=== PATIENT | female | born 1975 | race Caucasian/White ===

== ENCOUNTER 2017-02-17 08:16 | Emergency (ER) | payer BC, MEDICARE ==
[2017-02-17] MEDS ORDERED: Sodium Chloride 0.9% 1,000 ML IV SCH (08:30)
--- NOTE | 2017-02-17 08:34 | EDM.PDOC ---
ED HPI GENERAL MEDICAL PROBLEM - General Chief Complaint: Lower Extremity Injury/Pain Stated Complaint: [facility] Time Seen by Provider: 02/17/17 08:21 Source of Information: Reports: Patient, EMS, Family (), RN Notes Reviewed History Limitations: Reports: No Limitations - History of Present Illness INITIAL COMMENTS - FREE TEXT/NARRATIVE: According to EMS and the patient's , the patient was going down stairs, and fell, with 3 stairs remaining. The patient's found the patient's blood glucose to be 40; the patient is a type I diabetic with an insulin pump and stated that her blood glucose monitor had indicated that her blood glucose had been 40 for 1.5 hours. The patient's gave the patient juice. When EMS arrived, they found the patient at the bottom of the stairs, alert and oriented, hemodynamically stable, with a blood glucose of 80. They noted a deformity to the left leg. They were unable to place an IV. Fentanyl 75 mcg was given intranasally. The patient's last oral intake was around 07:00, when she was given juice and peaches to treat her low blood sugar. She has been kept NPO since. Left Leg Pain Score (Numeric/FACES): 7 - Related Data Allergies Allergy/AdvReac Type Severity Reaction Status Date / Time No Known Allergies Allergy Verified 02/17/17 08:21 Home Meds: Home Meds Aspirin [Halfprin] 81 mg PO BEDTIME 04/21/14 [History] Insulin Aspart [NovoLOG] 1 dose SQ ASDIRECTED PRN 04/21/14 [History] Omeprazole 40 mg PO BEDTIME 04/21/14 [History] Zolpidem Tartrate [Zolpidem Tartrate] 5 mg PO BEDTIME PRN 04/21/14 [History] Albuterol Inhaler. 1 - 2 puff INH Q4H PRN 02/17/17 [History] Amitriptyline [Elavil] 50 mg PO BEDTIME 02/17/17 [History] Cholecalciferol (Vitamin D3) [Vitamin D3] 1,000 unit PO DAILY 02/17/17 [History] Furosemide [Lasix] 40 mg PO DAILY 02/17/17 [History] Gabapentin [Neurontin] 600 mg PO TID 02/17/17 [History] Insulin Glarg,Human.Rec.Analog [LantUS Solostar] 24 units SUBCUT DAILY 02/17/17 [History] Lisinopril 2.5 mg PO DAILY 02/17/17 [History] Triamterene/Hydrochlorothiazid [Triamterene-HCTZ 37.5-25 MG] 1 cap PO DAILY [History] buPROPion [Wellbutrin SR] 150 mg PO BID 02/17/17 [History] guaiFENesin [Mucinex] 600 mg PO BID 02/17/17 [History] Past Medical History Cardiovascular History: Reports: Hypertension Gastrointestinal History: Reports: GERD Psychiatric History: Reports: Depression Endocrine/Metabolic History: Reports: Diabetes, Type I - Past Surgical History GI Surgical History: Reports: Bariatric Procedure (gastric bypass), Cholecystectomy Female Surgical History: Reports: Breast Implant (bilateral), Hysterectomy, Salpingo-Oophorectomy (unilateral), Tubal Ligation Musculoskeletal Surgical History: Reports: Amputation (right 5th toe) Social & Family History - Tobacco Use Smoking Status *Q: Never Smoker Second Hand Smoke Exposure: No - Alcohol Use Alcohol Use History: Yes Alcohol Use Frequency: Rarely - Recreational Drug Use Recreational Drug Use: No - Living Situation & Occupation Living situation: Reports: , with Spouse, with Family (1 daughter) 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 of Systems - Review of Systems Review Of Systems: See Below Constitutional: Reports: No Symptoms Eyes: Reports: No Symptoms Ears: Reports: No Symptoms Nose: Reports: No Symptoms Mouth/Throat: Reports: No Symptoms Respiratory: Reports: No Symptoms Cardiovascular: Reports: No Symptoms GI/Abdominal: Reports: No Symptoms Genitourinary: Reports: No Symptoms Musculoskeletal: Reports: No Symptoms Skin: Reports: No Symptoms Neurological: Reports: No Symptoms Psychiatric: Reports: No Symptoms ED EXAM, GENERAL - Physical Exam Exam: See Below Exam Limited By: No Limitations General Appearance: Alert, WD/WN, No Apparent Distress Eye Exam: Bilateral Eye: Normal Inspection Ears: Normal External Exam, Hearing Grossly Normal Nose: Normal Inspection, No Blood Throat/Mouth: Normal Inspection, Normal Lips, Normal Voice, No Airway Compromise Head: Atraumatic, Normocephalic Neck: Normal Inspection, Full Range of Motion Respiratory/Chest: No Respiratory Distress, Lungs Clear, Normal Breath Sounds, No Accessory Muscle Use Cardiovascular: Normal Peripheral Pulses, Regular Rate, Rhythm, No Gallop, No JVD, No Murmur, No Rub Peripheral Pulses: 2+: Radial (R) GI/Abdominal: Normal Bowel Sounds, Soft, Non-Tender, No Organomegaly, No Distention, No Abnormal Bruit, No Mass (Female) Exam: Deferred Rectal (Female) Exam: Deferred Extremities: No Pedal Edema, Normal Capillary Refill, Other (Protruding deformity to the anterior tibia, proximally 2/3 distal. The patient reports bilateral lower extremity peripheral neuropathy, however, no decreased sensation on the left, compared with the right. Weak dorsalis pedis and posterior tibialis pulses felt, bilaterally.) Neurological: Alert, Oriented, Normal Cognition, No Motor/Sensory Deficits Psychiatric: Normal Affect Skin Exam: Warm, Dry, Intact, Normal Color, No Rash ED TRAUMA EXTREMITY PROCEDURES - Splinting Left Lower Extremity Splint Site: Left leg Pre-Procedure NV Status: Normal Post-Procedure NV Status: Normal Splint Material: Fiberglass Splint Design: Posterior Applied & Form Fitted By: Provider Provider Post-Splint Application NV Check: NV Status Normal, Good Position Complications: No EKG INTERPRETATION EKG Date: 02/17/17 Time: 08:51 Rhythm: NSR Rate (Beats/Min): 74 [place]: Normal P-Wave: Present QRS: Normal ST-T: Normal QT: Normal Comparison: NA - No Prior EKG Course - Vital Signs Last Recorded V/S: Last Vital Signs Temp 35.8 C 02/17/17 08:21 Pulse 80 02/17/17 08:21 Resp BP 134/84 02/17/17 08:21 Pulse Ox 95 02/17/17 08:21 - Orders/Labs/Meds Orders: Active Orders 24 hr Category Date Time Status Accu Check [Blood Glucose Check, Bedside] [RC] ONETIME Care 02/17/17 08:24 Active EKG Documentation Completion [RC] STAT Care 02/17/17 08:23 Active Labs: Laboratory Tests 02/17/17 02/17/17 02/17/17 Range/Units 08:50 09:06 09:09 WBC 5.58 (3.98-10.04) K/mm3 RBC 4.44 (3.98-5.22) M/mm3 Hgb 12.7 (11.2-15.7) gm/L Hct 39.7 (34.1-44.9) % MCV 89.4 (79.4-94.8) fl MCH 28.6 (25.6-32.2) pg MCHC 32.0 L (32.2-35.5) g/dl RDW Std Deviation 52.7 H (36.4-46.3) fL Plt Count 231 (182-369) K/mm3 MPV 11.4 (9.4-12.3) fl Neutrophils % (Manual) 62 H (40-60) % Band Neutrophils % 0 (0-10) % Lymphocytes % (Manual) 33 (20-40) % Atypical Lymphs % 0 % Monocytes % (Manual) 2 (2-10) % Eosinophils % (Manual) 3 (0.7-5.8) % Basophils % (Manual) 0 L (0.1-1.2) Platelet Estimate Adequate RBC Morph Comment Normal Sodium (136-145) mEq/L Potassium (3.5-5.1) mEq/L Chloride (98-107) mEq/L Carbon Dioxide (21-32) mEq/L Anion Gap (5-15) BUN (7-18) mg/dL Creatinine (0.55-1.02) mg/dL Est Cr Clr Drug Dosing mL/min Estimated GFR (MDRD) (>60) mL/min BUN/Creatinine Ratio (14-18) Glucose (74-106) mg/dL POC Glucose 127 H 52 L (70-105) mg/dL Calcium (8.5-10.1) mg/dL Total Bilirubin (0.2-1.0) mg/dL AST (15-37) U/L ALT (14-59) U/L Alkaline Phosphatase (46-116) U/L Total Protein (6.4-8.2) g/dl Albumin (3.4-5.0) g/dl Globulin gm/dL Albumin/Globulin Ratio (1-2) 02/17/17 Range/Units 09:09 WBC (3.98-10.04) K/mm3 RBC (3.98-5.22) M/mm3 Hgb (11.2-15.7) gm/L Hct (34.1-44.9) % MCV (79.4-94.8) fl MCH (25.6-32.2) pg MCHC (32.2-35.5) g/dl RDW Std Deviation (36.4-46.3) fL Plt Count (182-369) K/mm3 MPV (9.4-12.3) fl Neutrophils % (Manual) (40-60) % Band Neutrophils % (0-10) % Lymphocytes % (Manual) (20-40) % Atypical Lymphs % % Monocytes % (Manual) (2-10) % Eosinophils % (Manual) (0.7-5.8) % Basophils % (Manual) (0.1-1.2) Platelet Estimate RBC Morph Comment Sodium 143 (136-145) mEq/L Potassium 3.8 (3.5-5.1) mEq/L Chloride 103 (98-107) mEq/L Carbon Dioxide 29 (21-32) mEq/L Anion Gap 14.8 (5-15) BUN 36 H (7-18) mg/dL Creatinine 1.7 H (0.55-1.02) mg/dL Est Cr Clr Drug Dosing 41.49 mL/min Estimated GFR (MDRD) 33 (>60) mL/min BUN/Creatinine Ratio 21.2 H (14-18) Glucose 59 L (74-106) mg/dL POC Glucose (70-105) mg/dL Calcium 8.4 L (8.5-10.1) mg/dL Total Bilirubin 0.4 (0.2-1.0) mg/dL AST 28 (15-37) U/L ALT 38 (14-59) U/L Alkaline Phosphatase 64 (46-116) U/L Total Protein 6.6 (6.4-8.2) g/dl Albumin 3.4 (3.4-5.0) g/dl Globulin 3.2 gm/dL Albumin/Globulin Ratio 1.1 (1-2) Meds: Medications Discontinued Medications Generic Name Dose Route Start Last Admin Trade Name Freq PRN Reason Stop Dose Admin Dextrose/Water 25 ml 02/17/17 09:09 02/17/17 09:12 Dextrose 50% In Water IVPUSH 02/17/17 09:10 25 ml ONETIME STA Administration Dextrose/Water Confirm 02/17/17 09:14 02/17/17 09:18 Dextrose 50% In Water Administered 02/17/17 09:15 Not Given Dose 50 ml .ROUTE .STK-MED ONE Hydromorphone HCl 0.5 mg 02/17/17 08:47 02/17/17 08:57 Dilaudid IVPUSH 02/17/17 08:48 0.5 mg ONETIME ONE Administration Hydromorphone HCl 0.5 mg 02/17/17 09:41 02/17/17 09:45 Dilaudid IVPUSH 02/17/17 09:42 0.5 mg ONETIME ONE Administration Sodium Chloride 1,000 mls @ 100 mls/hr 02/17/17 08:30 02/17/17 08:40 Normal Saline IV 100 mls/hr ASDIRECTED CRISTINA Administration Dextrose/Sodium Chloride 1,000 mls @ 100 mls/hr 02/17/17 09:15 02/17/17 09:17 Dextrose 5%-Normal Saline IV 100 mls/hr ASDIRECTED CRISTINA Administration Ondansetron HCl 4 mg 02/17/17 08:47 02/17/17 08:56 Zofran IVPUSH 02/17/17 08:48 4 mg ONETIME ONE Administration - Re-Assessments/Exams Free Text/Narrative Re-Assessment/Exam: 02/17/17 08:59 5-view radiographs of the left tibia and fibula appear to demonstrate a moderately displaced and angulated distal tibial spiral fracture, as well as moderately displaced and angulated proximal and distal fibular spiral fractures. Formal read per the Radiologist pending. Portable chest radiograph appears to be grossly normal. Cardiac silhouette is within normal limits. No pulmonary vascular congestion. No pleural effusions. No focal infiltrate. No pneumothorax. Formal read per the Radiologist pending. 02/17/17 09:12 The patient's initial Accu-Chek was 127, however, her glucose monitor indicated that her blood sugar dropped to 50. We performed an Accu-Chek and found it to be 52. The patient's normal saline has been changed to D5NS at 100 ml/hr, and 1/ 2 Amp D50 ordered. 02/17/17 09:15 Orthopedic Surgery is not available at this facility today - the patient will have to be transferred to [place]. The patient would prefer to be transferred to [facility]. Case discussed with Orthopedic Surgeon Dr. Soriano from [facility] at 09:13. He accepts the patient for transfer to their ED. 02/17/17 09:38 A left leg posterior mold splint has been applied. 02/17/17 09:40 The patient's insulin pump has been on. We asked the patient to turn it off. Departure - Departure Time of Disposition: 09:38 Disposition: DC/Tfer to Acute Hospital 02 Condition: Fair Clinical Impression: Closed fracture of left tibia and fibula, Hypoglycemic reaction - Discharge Information - My Orders Last 24 Hours: My Active Orders 02/17/17 08:23 EKG Documentation Completion [RC] STAT 02/17/17 08:24 Accu Check [Blood Glucose Check, Bedside] [RC] ONETIME - Assessment/Plan Last 24 Hours: My Active Orders 02/17/17 08:23 EKG Documentation Completion [RC] STAT 02/17/17 08:24 Accu Check [Blood Glucose Check, Bedside] [RC] ONETIME
[2017-02-17] MEDS ORDERED: HYDROmorphone 0.5 MG/0.5 ML Syringe IVPUSH ONE ×2 (08:47→09:41)
[2017-02-17] MEDS ORDERED: Ondansetron 4 MG/2 ML SDV IVPUSH ONE (08:47)
[2017-02-17] MEDS ORDERED: 50% Dextrose in Water 50 ML Syringe IVPUSH STA (09:09)
[2017-02-17] MEDS ORDERED: 50% Dextrose in Water 50 ML Syringe ONE (09:14)
[2017-02-17] MEDS ORDERED: Dextrose 5%-0.9% NaCl 1,000 ML IV SCH (09:15)
--- NOTE | 2017-02-17 09:54 | CR ---
Left tibia and fibula: Two views of the left tibia and fibula were obtained. Fracture identified near the junction of the mid and distal one third diaphysis of the tibia. This tibial fracture is mildly comminuted as well as being displaced close to one shaft width. Proximal fibular shaft fracture is seen being displaced by about three quarters shaft width. Soft tissue swelling is noted. Nondisplaced distal fibular diaphyseal fracture is also seen. Impression: 1. Fractures within the proximal and distal fibular diaphysis. 2. Mildly displaced fracture within the tibial diaphysis. 3. Soft tissue swelling. Diagnostic code #3
--- NOTE | 2017-02-17 09:54 | CR ---
Chest: Portable view of the chest was obtained. Comparison: No prior chest x-ray. Heart size and mediastinum are within normal limits. Lungs are clear. Bony structures are grossly intact. Surgical clips are seen from prior cholecystectomy. Impression: 1. Nothing acute is identified on portable chest x-ray. Diagnostic code #2
== END 2017-02-17 10:00 ==
LOC: JD.ED 08:16
DX: S82.242A Displaced spiral fracture of shaft of left tibia, initial encounter for closed fracture (principal); S82.442A Displaced spiral fracture of shaft of left fibula, initial encounter for closed fracture; E10.649 Type 1 diabetes mellitus with hypoglycemia without coma; I10 Essential (primary) hypertension; Z79.82 Long term (current) use of aspirin; Z79.4 Long term (current) use of insulin; Z79.899 Other long term (current) drug therapy; W10.9XXA Fall (on) (from) unspecified stairs and steps, initial encounter
CPT/HCPCS: 29505; 36415; 71010; 73590; 80053; 82962; 85025; 93005; 96361; 96374; 96375; 99285; J1170; J2405; J7040; J7042; J7060; 93010; 99284-25

== ENCOUNTER 2018-07-04 16:35 | Emergency (ER) | payer BC, MEDICARE ==
[2018-07-04] MEDS ORDERED: Sodium Chloride 0.9% 10 ML Syringe FLUSH PRN (17:03)
[2018-07-04] MEDS ORDERED: Sodium Chloride 0.9% 1,000 ML IV SCH (17:15)
--- NOTE | 2018-07-04 17:46 | EDM.PDOC ---
ED HPI GENERAL MEDICAL PROBLEM - General Chief Complaint: Lower Extremity Injury/Pain Stated Complaint: FOOT INFECTION Time Seen by Provider: 07/04/18 16:46 Source of Information: Reports: Patient, Family, Provider History Limitations: Reports: No Limitations - History of Present Illness INITIAL COMMENTS - FREE TEXT/NARRATIVE: The patient presents from our clinic with left foot pain and worsening infection. The patient said this all started about 2 weeks ago. She had dry feet and she had a crack to her skin on the lateral foot. This got infected and she saw her provider and she was put on keflex for 10 days and physical therapy for debridement. She is type I diabetic. The infection has gotten worse. She has erythema to her distal left foot and to all 5 toes and there is pallor to the 4th and 5th toes. She can feel all toes. She has pain to the foot. There is foul smelling drainage from a wound to the lateral distal foot near the base of the 5th phalynx. The patient went to see her provider in follow up and she was concerned the infection is worse and that she may have osteomyolitis. MRI was unavailable so she ordered an x-ray and a CT of the foot. She sent the patient over for possible admission or transfer. She developed fever and chills the past couple days. Onset: Gradual Duration: Week(s): (2) Location: Reports: Lower Extremity, Left (foot) Quality: Reports: Sharp Severity: Moderate Improves with: Reports: None Worsens with: Reports: None Associated Symptoms: Reports: Fever/Chills Left Feet Pain Score (Numeric/FACES): 8 - Related Data Allergies Allergy/AdvReac Type Severity Reaction Status Date / Time No Known Allergies Allergy Verified 02/24/18 09:25 Home Meds: Home Meds Aspirin [Halfprin] 81 mg PO BEDTIME 04/21/14 [History] Insulin Aspart [NovoLOG] 1 dose SQ ASDIRECTED PRN 04/21/14 [History] Omeprazole 40 mg PO BEDTIME 04/21/14 [History] Zolpidem Tartrate 5 mg PO BEDTIME PRN 04/21/14 [History] Cholecalciferol (Vitamin D3) [Vitamin D3] 15,000 unit PO DAILY 02/17/17 [History ] Furosemide [Lasix] 40 mg PO DAILY 02/17/17 [History] Lisinopril 2.5 mg PO DAILY 02/17/17 [History] Triamterene/Hydrochlorothiazid [Triamterene-HCTZ 37.5-25 MG] 1 cap PO DAILY [History] buPROPion [Wellbutrin SR] 150 mg PO BID 02/17/17 [History] Insulin Degludec [Tresiba] 16 unit INJECT BEDTIME 07/04/18 [History] Pregabalin [Lyrica] 100 mg PO TID 07/04/18 [History] traMADol [Ultram] 50 mg PO Q6H PRN 07/04/18 [History] Past Medical History Cardiovascular History: Reports: Hypertension Gastrointestinal History: Reports: GERD Neurological History: Reports: Neuropathy, Peripheral Psychiatric History: Reports: Depression Endocrine/Metabolic History: Reports: Diabetes, Type I - Past Surgical History GI Surgical History: Reports: Bariatric Procedure, Cholecystectomy Female Surgical History: Reports: Breast Implant, Hysterectomy, Salpingo- Oophorectomy, Tubal Ligation Musculoskeletal Surgical History: Reports: Amputation Other Musculoskeletal Surgeries/Procedures:: right foot 4-5 toes Social & Family History - Tobacco Use Smoking Status *Q: Never Smoker - Caffeine Use Caffeine Use: Reports: Energy Drinks, Soda - Recreational Drug Use Recreational Drug Use: No - Living Situation & Occupation Living situation: Reports: , with Spouse, with Family (1 daughter) 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 of Systems - Review of Systems Review Of Systems: See Below Constitutional: Reports: Chills, Fever Eyes: Reports: No Symptoms Ears: Reports: No Symptoms Nose: Reports: No Symptoms Mouth/Throat: Reports: No Symptoms Respiratory: Reports: No Symptoms Cardiovascular: Reports: No Symptoms GI/Abdominal: Reports: No Symptoms Musculoskeletal: Reports: Other (Left foot errythema and sore) ED EXAM, GENERAL - Physical Exam Exam: See Below Exam Limited By: No Limitations General Appearance: Alert, No Apparent Distress Ears: Normal External Exam Nose: Normal Inspection Head: Atraumatic, Normocephalic Neck: Normal Inspection Respiratory/Chest: No Respiratory Distress, Lungs Clear, Normal Breath Sounds Cardiovascular: Regular Rate, Rhythm, No Edema, No Murmur GI/Abdominal: Soft, Non-Tender, No Organomegaly, No Mass Extremities: Other (Erythema to the distal left foot involving all 5 toes. There is feeling in all toes. She does have some pallor to the 4th and 5th toes. Ther is a wound with foul smelling drainage to the distal lateral foot.) Course - Vital Signs Last Recorded V/S: Last Vital Signs Temp 100.5 F 07/04/18 16:54 Pulse 101 H 07/04/18 16:54 Resp 20 07/04/18 16:54 BP 151/87 H 07/04/18 16:54 Pulse Ox 96 07/04/18 16:54 - Orders/Labs/Meds Orders: Active Orders 24 hr Category Date Time Status Accu Check [Blood Glucose Check, Bedside] [RC] ONETIME Care 07/04/18 18:18 Inactive Peripheral IV Care [RC] . DIRECTED Care 07/04/18 17:04 Active BASIC METABOLIC PANEL,BMP [CHEM] Stat Lab 07/04/18 18:07 Results CBC WITH AUTO DIFF [HEME] Stat Lab 07/04/18 18:07 Results CRP [C-REACTIVE PROTEIN] [CHEM] Stat Lab 07/04/18 18:07 Results CULTURE ANAEROBIC + SMEAR [RM] Stat Lab 07/04/18 17:34 Received CULTURE BLOOD [BC] Stat Lab 07/04/18 17:05 Ordered CULTURE BLOOD [BC] Stat Lab 07/04/18 17:50 Received Sodium Chloride 0.9% [Normal Saline] 1,000 ml Med 07/04/18 17:15 Active IV ASDIRECTED Sodium Chloride 0.9% [Saline Flush] Med 07/04/18 17:03 Active 10 ml FLUSH ASDIRECTED PRN Vancomycin 2 gm Med 07/04/18 18:30 Active Sodium Chloride 0.9% [Normal Saline] 500 ml IV ONETIME Blood Culture x2 Reflex Set [OM.PC] Stat Oth 07/04/18 17:05 Ordered Peripheral IV Insertion Adult [OM.PC] Stat Oth 07/04/18 17:03 Ordered Medication Orders Sodium Chloride (Normal Saline) 1,000 mls @ 125 mls/hr IV ASDIRECTED CRISTINA Last Admin: 07/04/18 18:01 Dose: 125 mls/hr Vancomycin HCl 2 gm/ Sodium (Chloride) 500 mls @ 250 mls/hr IV ONETIME ONE Stop: 07/04/18 20:29 Last Admin: 07/04/18 18:21 Dose: 250 mls/hr Sodium Chloride (Saline Flush) 10 ml FLUSH ASDIRECTED PRN PRN Reason: Keep Vein Open Last Admin: 07/04/18 18:02 Dose: 10 ml Labs: Laboratory Tests 07/04/18 07/04/18 Range/Units 18:07 18:07 WBC 16.38 H (3.98-10.04) K/mm3 RBC 3.45 L (3.98-5.22) M/mm3 Hgb 11.3 (11.2-15.7) gm/L Hct 34.8 (34.1-44.9) % MCV 100.9 H (79.4-94.8) fl MCH 32.8 H (25.6-32.2) pg MCHC 32.5 (32.2-35.5) g/dl RDW Std Deviation 41.0 (36.4-46.3) fL Plt Count 298 (182-369) K/mm3 MPV 10.0 (9.4-12.3) fl Neut % (Auto) 84.2 H (34.0-71.1) % Lymph % (Auto) 8.1 L (19.3-51.7) % [place] % (Auto) 7.0 (4.7-12.5) % Eos % (Auto) 0.3 L (0.7-5.8) Baso % (Auto) 0.1 (0.1-1.2) % Neut # (Auto) 13.80 H (1.56-6.13) K/mm3 Lymph # (Auto) 1.32 (1.18-3.74) K/mm3 [place] # (Auto) 1.14 H (0.24-0.36) K/mm3 Eos # (Auto) 0.05 (0.04-0.36) K/mm3 Baso # (Auto) 0.02 (0.01-0.08) K/mm3 Sodium 140 (136-145) mEq/L Potassium 3.9 (3.5-5.1) mEq/L Chloride 101 (98-107) mEq/L Carbon Dioxide 27 (21-32) mEq/L Anion Gap 15.9 H (5-15) BUN 13 (7-18) mg/dL Creatinine 1.1 H (0.55-1.02) mg/dL Est Cr Clr Drug Dosing 62.80 mL/min Estimated GFR (MDRD) 54 (>60) mL/min BUN/Creatinine Ratio 11.8 L (14-18) Glucose 250 H (74-106) mg/dL Calcium 8.2 L (8.5-10.1) mg/dL Total Bilirubin Cancelled AST Cancelled ALT Cancelled Alkaline Phosphatase Cancelled Total Protein Cancelled Albumin Cancelled Globulin Cancelled Albumin/Globulin Ratio Cancelled Meds: Medications Generic Name Dose Route Start Last Admin Trade Name Freq PRN Reason Stop Dose Admin Sodium Chloride 1,000 mls @ 125 mls/hr 07/04/18 17:15 07/04/18 18:01 Normal Saline IV 125 mls/hr ASDIRECTED CRISTINA Administration Vancomycin HCl 2 gm/ Sodium 500 mls @ 250 mls/hr 07/04/18 18:30 07/04/18 18: 21 Chloride IV 07/04/18 20:29 250 mls/hr ONETIME ONE Administration Sodium Chloride 10 ml 07/04/18 17:03 07/04/18 18:02 Saline Flush FLUSH 10 ml ASDIRECTED PRN Administration Keep Vein Open Discontinued Medications Generic Name Dose Route Start Last Admin Trade Name Freq PRN Reason Stop Dose Admin Hydromorphone HCl 1 mg 07/04/18 18:14 07/04/18 18:18 Dilaudid IVPUSH 07/04/18 18:15 1 mg ONETIME ONE Administration - Re-Assessments/Exams Free Text/Narrative Re-Assessment/Exam: 07/04/18 17:51 I ordered an IV NS at 125mL/hr, labs, blood cultures, cultures of the wound and vancomycin 2 grams. Her x-ray of her foot shows diffuse soft tissue swelling with soft tissue air compatible with cellulitis. Minimal irregularity within the base of the proximal phalanx of the 5th toe suspicious for early osteomyelitis. The CT shows diffuse soft tissue swelling. Soft tissue air around the 5th toe with small cortical defect involving the base of the proximal phalanx of the 5th toe suspicious for early area of osteomyelitis. Vascular calcification. 07/04/18 18:22 Her WBC was elevated at 16.38. She was a hard lab draw. They got 1 blood culture and they will give me a CBC, CMP, CRP but no sed rate. She was having more pain so I ordered dilaudid 1mg IV. 07/04/18 18:49 Her blood sugar was 250. I feel she needs to be admitted but we do not have ortho this weekend. I called [facility] in [place] and talked to the hospitalist energy conservation director Dr Washington and he accepted the patient. Departure - Departure Time of Disposition: 18:55 Disposition: DC/Tfer to [facility] 02 Condition: Poor Clinical Impression: Cellulitis of left foot, Wound infection Osteomyelitis Qualifiers: Osteomyelitis type: unspecified type Osteomyelitis location: foot Laterality: left Qualified Code(s): M86.9 - Osteomyelitis, unspecified - Discharge Information Referrals: Modesta Candelario PA-C [Primary Care Provider] - Forms: ED Department Discharge - My Orders Last 24 Hours: My Active Orders 07/04/18 17:03 Sodium Chloride 0.9% [Saline Flush] 10 ml FLUSH ASDIRECTED PRN Peripheral IV Insertion Adult [OM.PC] Stat 07/04/18 17:04 Peripheral IV Care [RC] . DIRECTED 07/04/18 17:05 CULTURE BLOOD [BC] Stat Blood Culture x2 Reflex Set [OM.PC] Stat 07/04/18 17:15 Sodium Chloride 0.9% [Normal Saline] 1,000 ml IV ASDIRECTED 07/04/18 17:34 CULTURE ANAEROBIC + SMEAR [RM] Stat 07/04/18 17:50 CULTURE BLOOD [BC] Stat 07/04/18 18:07 BASIC METABOLIC PANEL,BMP [CHEM] Stat CBC WITH AUTO DIFF [HEME] Stat CRP [C-REACTIVE PROTEIN] [CHEM] Stat 07/04/18 18:18 Accu Check [Blood Glucose Check, Bedside] [RC] ONETIME 07/04/18 18:30 Vancomycin 2 gm Sodium Chloride 0.9% [Normal Saline] 500 ml IV ONETIME - Assessment/Plan Last 24 Hours: My Active Orders 07/04/18 17:03 Sodium Chloride 0.9% [Saline Flush] 10 ml FLUSH ASDIRECTED PRN Peripheral IV Insertion Adult [OM.PC] Stat 07/04/18 17:04 Peripheral IV Care [RC] . DIRECTED 07/04/18 17:05 CULTURE BLOOD [BC] Stat Blood Culture x2 Reflex Set [OM.PC] Stat 07/04/18 17:15 Sodium Chloride 0.9% [Normal Saline] 1,000 ml IV ASDIRECTED 07/04/18 17:34 CULTURE ANAEROBIC + SMEAR [RM] Stat 07/04/18 17:50 CULTURE BLOOD [BC] Stat 07/04/18 18:07 BASIC METABOLIC PANEL,BMP [CHEM] Stat CBC WITH AUTO DIFF [HEME] Stat CRP [C-REACTIVE PROTEIN] [CHEM] Stat 07/04/18 18:18 Accu Check [Blood Glucose Check, Bedside] [RC] ONETIME 07/04/18 18:30 Vancomycin 2 gm Sodium Chloride 0.9% [Normal Saline] 500 ml IV ONETIME
[2018-07-04] MEDS ORDERED: HYDROmorphone 1 MG/ML Syringe IVPUSH ONE (18:14)
[2018-07-04] MEDS ORDERED: Vancomycin 2 GM in Sodium Chloride 0.9% 500 ML IV ONE (18:30)
== END 2018-07-04 19:16 ==
LOC: JD.ED 16:35
DX: L03.116 Cellulitis of left lower limb (principal); M86.9 Osteomyelitis, unspecified; I10 Essential (primary) hypertension; K21.9 Gastro-esophageal reflux disease without esophagitis; E10.9 Type 1 diabetes mellitus without complications; Z79.899 Other long term (current) drug therapy; L08.9 Local infection of the skin and subcutaneous tissue, unspecified; Z79.82 Long term (current) use of aspirin
CPT/HCPCS: 36415; 80048; 85025; 86140; 87040; 87075; 87205; 96365; 96375; 99284; J1170; J3370; J7040

== ENCOUNTER 2019-12-25 18:42 | Emergency (ER) | payer MEDICARE, OTHER ==
[2019-12-25] MEDS ORDERED: Sodium Chloride 0.9% 10 ML Syringe FLUSH PRN (18:57)
[2019-12-25] MEDS ORDERED: Sodium Chloride 0.9% 1,000 ML ONE (19:21)
--- NOTE | 2019-12-25 21:20 | CR ---
Chest: Frontal view of the chest was obtained. Comparison: No prior chest imaging is available. Diffuse parenchymal density is seen within both lungs. Heart size does not appear enlarged. Upper mediastinum is normal. Right subclavian line is seen. Tip extends through the right atrium into the intrahepatic portion of the inferior vena cava. Surgical clips are seen from prior cholecystectomy. Impression: 1. Tip of right subclavian line within the intrahepatic portion of the inferior vena cava. If tip position is desired within the superior vena cava this would need to be withdrawn by about 15 cm. 2. Diffuse increased parenchymal densities on both sides of the chest which could represent pulmonary edema if patient has acute cardiac event or other etiologies for pulmonary edema. Diffuse pneumonia is also a possibility which could be both bacterial or viral. Diagnostic code #5 Study was dictated in MDT
[2019-12-25] MEDS ORDERED: propofoL 100 ML ONE (21:27)
[2019-12-25] MEDS ORDERED: Dextrose 5%-0.9% NaCl 1,000 ML IV SCH (21:30)
[2019-12-25] MEDS ORDERED: Etomidate 2 MG/ML 20 ML SDV IVPUSH ONE (21:35)
[2019-12-25] MEDS ORDERED: Succinylcholine 200 MG/10 ML MDV IV ONE (21:36)
[2019-12-25] MEDS ORDERED: Midazolam 1 MG/ML 5 ML SDV IVPUSH ONE (21:50)
[2019-12-25] MEDS ORDERED: propofoL 100 ML IV SCH (21:55)
--- NOTE | 2019-12-25 22:11 | EDM.PDOC ---
ED HPI GENERAL MEDICAL PROBLEM - General Chief Complaint: General Stated Complaint: UNRESPONSIVE/TYPE 1 DIABETES Time Seen by Provider: 12/25/19 18:52 Source of Information: Reports: Family History Limitations: Reports: Altered Mental Status - History of Present Illness INITIAL COMMENTS - FREE TEXT/NARRATIVE: The patient presents with her for confusion, cough and shortness of breath. She started having symptoms a few days ago and was tested for COVID and she was positive. She is a brittle type I diabetic and her bed side glucose was 204. Her oxygen saturations were 77%. She was out on some 4L of oxygen by nasal cannula and she went up to 93%. She had a cough, felt short of breath. She has no diarrhea. Onset: Gradual Duration: Day(s): Severity: Moderate Improves with: Reports: None Worsens with: Reports: None Associated Symptoms: Reports: Confusion, Cough, Fever/Chills, Shortness of Breath. Denies: Chest Pain, Headaches, Nausea/Vomiting - Related Data Allergies Allergy/AdvReac Type Severity Reaction Status Date / Time No Known Allergies Allergy Verified 12/25/19 19:26 Home Meds: Home Meds Aspirin [Halfprin] 81 mg PO BEDTIME 04/21/14 [History] Insulin Aspart [NovoLOG] 1 dose SQ ASDIRECTED PRN 04/21/14 [History] Omeprazole 40 mg PO BEDTIME 04/21/14 [History] Zolpidem Tartrate 5 mg PO BEDTIME PRN 04/21/14 [History] Cholecalciferol (Vitamin D3) [Vitamin D3] 15,000 unit PO DAILY 02/17/17 [History] Furosemide [Lasix] 40 mg PO DAILY 02/17/17 [History] Lisinopril 2.5 mg PO DAILY 02/17/17 [History] Triamterene/Hydrochlorothiazid [Triamterene-HCTZ 37.5-25 MG] 1 cap PO DAILY 02/17/17 [History] buPROPion [Wellbutrin SR] 150 mg PO BID 02/17/17 [History] Insulin Degludec [Tresiba] 16 unit INJECT BEDTIME 07/04/18 [History] Pregabalin [Lyrica] 100 mg PO TID 07/04/18 [History] Acetaminophen/HYDROcodone [[place] 325-5 MG] 1 tab PO Q4H PRN 07/14/18 [History] Past Medical History Cardiovascular History: Reports: Hypertension Gastrointestinal History: Reports: GERD Neurological History: Reports: Neuropathy, Peripheral Psychiatric History: Reports: Depression Endocrine/Metabolic History: Reports: Diabetes, Type I - Past Surgical History GI Surgical History: Reports: Bariatric Procedure, Cholecystectomy Female Surgical History: Reports: Breast Implant, Hysterectomy, Salpingo- Oophorectomy, Tubal Ligation Musculoskeletal Surgical History: Reports: Amputation Other Musculoskeletal Surgeries/Procedures:: right foot 4-5 toes, surgery on L heel Social & Family History - Tobacco Use Smoking Status *Q: Never Smoker Second Hand Smoke Exposure: No - Caffeine Use Caffeine Use: Reports: None - Recreational Drug Use Recreational Drug Use: No - Living Situation & Occupation Living situation: Reports: , with Spouse, with Family (1 daughter) 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) ED ROS GENERAL - Review of Systems Review Of Systems: See Below Constitutional: Reports: Fever, Chills, Malaise, Weakness HEENT: Reports: No Symptoms Respiratory: Reports: Shortness of Breath, Cough Cardiovascular: Denies: No Symptoms Endocrine: Reports: No Symptoms GI/Abdominal: Reports: No Symptoms : Reports: No Symptoms Musculoskeletal: Reports: No Symptoms ED EXAM, GENERAL - Physical Exam Exam: See Below Exam Limited By: Altered Mental Status General Appearance: Alert, Other (confused) Ears: Normal External Exam Nose: Normal Inspection Head: Atraumatic, Normocephalic Neck: Normal Inspection Respiratory/Chest: Respiratory Distress (mild), Decreased Breath Sounds Cardiovascular: Regular Rate, Rhythm, No Edema, No Murmur GI/Abdominal: Soft, Non-Tender, No Organomegaly, No Mass Back Exam: Normal Inspection Extremities: Normal Inspection ED GENERAL MEDICAL PROCEDURES - Endotracheal Intubation Time of Intubation: 21:30 ET Intubation Indication: Respiratory Failure Preparation: Suction, Balloon Tested, BVM Set Up, Difficult Airway Equip Pre-Oxygenation: Assisted with BVM Anesthesia Meds: Etomidate, Succinylcholine Placement: Orotracheal, Cuffed, Uncomplicated Placement Cords Visualized: Yes Number of Attempts: 1 Confirmed By: CO2 Indicator, Bilateral Breath Sounds, Chest Xray Tube Secured By: By RT ED CENTRAL LINE INSERTION - Central Line Insertion Central Line Indication: IV access Site: subclavian (R) Prep: CDC/MBT Guidelines Lumen: triple Gauge: other Local Anesthesia - Lidocaine (Xylocaine): 1% Plain Local Anesthetic Volume: 3cc Guidewire and dilator removed intact: Yes Complications: Yes (The line had to be pulled back) Secured with suture: Yes Post placement confirmation: CXR, all ports aspirated, all ports flushed CXR post-procedure: no pneumothorax, no hemothorax Dressing applied: by provider Course - Vital Signs Last Recorded V/S: Last Vital Signs Temp 98.6 F 12/25/19 18:51 Pulse 110 H 12/25/19 20:43 Resp 22 H 12/25/19 20:43 BP 149/92 H 12/25/19 20:43 Pulse Ox 73 L 12/25/19 21:15 - Orders/Labs/Meds Orders: Active Orders 24 hr Category Date Time Status Cardiac Monitoring [RC] . DIRECTED Care 12/25/19 18:57 Active Central Line Assessment [RC] DAILY Care 12/25/19 20:31 Active Oxygen Therapy [RC] PRN Care 12/25/19 18:57 Active Peripheral IV Care [RC] . DIRECTED Care 12/25/19 18:58 Active CXR [Chest 1V Frontal] [CR] Stat Exams 12/25/19 22:01 Taken Chest 1V Frontal [CR] Stat Exams 12/25/19 18:58 Taken CULTURE BLOOD [BC] Stat Lab 12/25/19 18:59 Ordered CULTURE BLOOD [BC] Stat Lab 12/25/19 18:59 Ordered Dextrose 5%-0.9% NaCl [Dextrose 5%-Normal Saline] 1,000 Med 12/25/19 21:30 Active ml IV ASDIRECTED Sodium Chloride 0.9% [Saline Flush] Med 12/25/19 18:57 Active 10 ml FLUSH ASDIRECTED PRN Blood Culture x2 Reflex Set [OM.PC] Stat Oth 12/25/19 18:59 Ordered Peripheral IV Insertion Adult [OM.PC] Stat Oth 12/25/19 18:57 Ordered Medication Orders Dextrose/Sodium Chloride (Dextrose 5%-Normal Saline) 1,000 mls @ 100 mls/hr IV ASDIRECTED CRISTINA Sodium Chloride (Saline Flush) 10 ml FLUSH ASDIRECTED PRN PRN Reason: Keep Vein Open Last Admin: 12/25/19 19:39 Dose: 10 ml Documented by: EYAL Labs: Laboratory Tests 0912/25/19 12/25/19 Range/Units 18:45 19:30 20:00 WBC 9.58 (3.98-10.04) K/mm3 RBC 3.20 L (3.98-5.22) M/mm3 Hgb 9.6 L D (11.2-15.7) gm/dl Hct 31.9 L (34.1-44.9) % MCV 99.7 H (79.4-94.8) fl MCH 30.0 (25.6-32.2) pg MCHC 30.1 L (32.2-35.5) g/dl RDW Std Deviation 49.1 H (36.4-46.3) fL Plt Count 584 H D (182-369) K/mm3 MPV 9.6 (9.4-12.3) fl Neut % (Auto) 85.4 H (34.0-71.1) % Lymph % (Auto) 6.6 L (19.3-51.7) % Jackson % (Auto) 7.0 (4.7-12.5) % Eos % (Auto) 0.4 L (0.7-5.8) Baso % (Auto) 0.1 (0.1-1.2) % Neut # (Auto) 8.18 H (1.56-6.13) K/mm3 Lymph # (Auto) 0.63 L (1.18-3.74) K/mm3 Jackson # (Auto) 0.67 H (0.24-0.36) K/mm3 Eos # (Auto) 0.04 (0.04-0.36) K/mm3 Baso # (Auto) 0.01 (0.01-0.08) K/mm3 Manual Slide Review Abnormal smear PT (9.7-11.7) SECONDS INR APTT (22-31) SECONDS D-Dimer, Quantitative (0.19-0.50) mg/L Puncture Site Rt radial ABG pH 7.35 (7.35-7.45) ABG pCO2 39.8 (35.0-45.0) mmHg ABG pO2 69.0 L (80.0-100.0) mmHg ABG HCO3 21.5 L (22.0-26.0) meq/L ABG O2 Saturation 86.0 L (96.0-97.0) % ABG Base Excess -3.3 L (-2-2.0) A-a Gradient 138 mmHg O2 Delivery Device Nasal cannula Oxygen Flow Rate 4.0 FiO2 36.00 (21.00-100.00) % Sodium (136-145) mEq/L Potassium (3.5-5.1) mEq/L Chloride (98-107) mEq/L Carbon Dioxide (21-32) mEq/L Anion Gap (5-15) BUN (7-18) mg/dL Creatinine (0.55-1.02) mg/dL Est Cr Clr Drug Dosing mL/min Estimated GFR (MDRD) (>60) mL/min BUN/Creatinine Ratio (14-18) Glucose (74-106) mg/dL POC Glucose 204 H (70-105) mg/dL Lactic Acid (0.4-2.0) mmol/L Calcium (8.5-10.1) mg/dL Ferritin (8-252) ng/ml Total Bilirubin (0.2-1.0) mg/dL AST (15-37) U/L ALT (14-59) U/L Alkaline Phosphatase (46-116) U/L Lactate Dehydrogenase (81-234) U/L Creatine Kinase (26-192) U/L C-Reactive Protein (<1.0) mg/dL NT-Pro-B Natriuret Pep (0-125) pg/mL Total Protein (6.4-8.2) g/dl Albumin (3.4-5.0) g/dl Globulin gm/dL Albumin/Globulin Ratio (1-2) 12/25/19 12/25/19 12/25/19 Range/Units 20:00 20:00 20:00 WBC (3.98-10.04) K/mm3 RBC (3.98-5.22) M/mm3 Hgb (11.2-15.7) gm/dl Hct (34.1-44.9) % MCV (79.4-94.8) fl MCH (25.6-32.2) pg MCHC (32.2-35.5) g/dl RDW Std Deviation (36.4-46.3) fL Plt Count (182-369) K/mm3 MPV (9.4-12.3) fl Neut % (Auto) (34.0-71.1) % Lymph % (Auto) (19.3-51.7) % Jackson % (Auto) (4.7-12.5) % Eos % (Auto) (0.7-5.8) Baso % (Auto) (0.1-1.2) % Neut # (Auto) (1.56-6.13) K/mm3 Lymph # (Auto) (1.18-3.74) K/mm3 Jackson # (Auto) (0.24-0.36) K/mm3 Eos # (Auto) (0.04-0.36) K/mm3 Baso # (Auto) (0.01-0.08) K/mm3 Manual Slide Review PT 11.6 (9.7-11.7) SECONDS INR 1.09 APTT 31 (22-31) SECONDS D-Dimer, Quantitative 2.77 H (0.19-0.50) mg/L Puncture Site ABG pH (7.35-7.45) ABG pCO2 (35.0-45.0) mmHg ABG pO2 (80.0-100.0) mmHg ABG HCO3 (22.0-26.0) meq/L ABG O2 Saturation (96.0-97.0) % ABG Base Excess (-2-2.0) A-a Gradient mmHg O2 Delivery Device Oxygen Flow Rate FiO2 (21.00-100.00) % Sodium 142 (136-145) mEq/L Potassium 4.0 (3.5-5.1) mEq/L Chloride 103 (98-107) mEq/L Carbon Dioxide 26 (21-32) mEq/L Anion Gap 17.0 H (5-15) BUN 28 H (7-18) mg/dL Creatinine 1.1 H (0.55-1.02) mg/dL Est Cr Clr Drug Dosing 55.18 mL/min Estimated GFR (MDRD) 53 (>60) mL/min BUN/Creatinine Ratio 25.5 H (14-18) Glucose 118 H (74-106) mg/dL POC Glucose (70-105) mg/dL Lactic Acid (0.4-2.0) mmol/L Calcium 8.4 L (8.5-10.1) mg/dL Ferritin (8-252) ng/ml Total Bilirubin 0.6 (0.2-1.0) mg/dL AST 19 (15-37) U/L ALT 26 (14-59) U/L Alkaline Phosphatase 112 (46-116) U/L Lactate Dehydrogenase 391 H (81-234) U/L Creatine Kinase 23 L (26-192) U/L C-Reactive Protein 19.8 H* (<1.0) mg/dL NT-Pro-B Natriuret Pep 2097 H (0-125) pg/mL Total Protein 6.2 L (6.4-8.2) g/dl Albumin 1.9 L (3.4-5.0) g/dl Globulin 4.3 gm/dL Albumin/Globulin Ratio 0.4 L (1-2) 12/25/19 12/25/19 Range/Units 20:00 20:15 WBC (3.98-10.04) K/mm3 RBC (3.98-5.22) M/mm3 Hgb (11.2-15.7) gm/dl Hct (34.1-44.9) % MCV (79.4-94.8) fl MCH (25.6-32.2) pg MCHC (32.2-35.5) g/dl RDW Std Deviation (36.4-46.3) fL Plt Count (182-369) K/mm3 MPV (9.4-12.3) fl Neut % (Auto) (34.0-71.1) % Lymph % (Auto) (19.3-51.7) % Jackson % (Auto) (4.7-12.5) % Eos % (Auto) (0.7-5.8) Baso % (Auto) (0.1-1.2) % Neut # (Auto) (1.56-6.13) K/mm3 Lymph # (Auto) (1.18-3.74) K/mm3 Jackson # (Auto) (0.24-0.36) K/mm3 Eos # (Auto) (0.04-0.36) K/mm3 Baso # (Auto) (0.01-0.08) K/mm3 Manual Slide Review PT (9.7-11.7) SECONDS INR APTT (22-31) SECONDS D-Dimer, Quantitative (0.19-0.50) mg/L Puncture Site ABG pH (7.35-7.45) ABG pCO2 (35.0-45.0) mmHg ABG pO2 (80.0-100.0) mmHg ABG HCO3 (22.0-26.0) meq/L ABG O2 Saturation (96.0-97.0) % ABG Base Excess (-2-2.0) A-a Gradient mmHg O2 Delivery Device Oxygen Flow Rate FiO2 (21.00-100.00) % Sodium (136-145) mEq/L Potassium (3.5-5.1) mEq/L Chloride (98-107) mEq/L Carbon Dioxide (21-32) mEq/L Anion Gap (5-15) BUN (7-18) mg/dL Creatinine (0.55-1.02) mg/dL Est Cr Clr Drug Dosing mL/min Estimated GFR (MDRD) (>60) mL/min BUN/Creatinine Ratio (14-18) Glucose (74-106) mg/dL POC Glucose (70-105) mg/dL Lactic Acid 0.6 (0.4-2.0) mmol/L Calcium (8.5-10.1) mg/dL Ferritin 70 (8-252) ng/ml Total Bilirubin (0.2-1.0) mg/dL AST (15-37) U/L ALT (14-59) U/L Alkaline Phosphatase (46-116) U/L Lactate Dehydrogenase (81-234) U/L Creatine Kinase (26-192) U/L C-Reactive Protein (<1.0) mg/dL NT-Pro-B Natriuret Pep (0-125) pg/mL Total Protein (6.4-8.2) g/dl Albumin (3.4-5.0) g/dl Globulin gm/dL Albumin/Globulin Ratio (1-2) Meds: Medications Generic Name Dose Route Start Last Admin Trade Name Freq PRN Reason Stop Dose Admin Dextrose/Sodium Chloride 1,000 mls @ 100 mls/hr 12/25/19 21:30 Dextrose 5%-Normal Saline IV ASDIRECTED CRISTINA Sodium Chloride 10 ml 12/25/19 18:57 12/25/19 19:39 Saline Flush FLUSH 10 ml ASDIRECTED PRN Administration Keep Vein Open Discontinued Medications Generic Name Dose Route Start Last Admin Trade Name Freq PRN Reason Stop Dose Admin Sodium Chloride Confirm 12/25/19 19:21 Normal Saline Administered 12/25/19 19:22 Dose 1,000 mls @ as directed .ROUTE .STK-MED ONE Propofol Confirm 12/25/19 21:27 Diprivan 100 Ml Administered 12/25/19 21:28 Dose 100 mls @ as directed .ROUTE .STK-MED ONE - Re-Assessments/Exams Free Text/Narrative Re-Assessment/Exam: 12/25/19 22:40 The patient was confused when she came in. Blood sugar was 204. Her oxygen saturations were 77% on room air. She did come up to 94%. I ordered a CXR, labs, ABG, lactic acid, and blood cultures. Her WBC was normal. Her HGb was low at 9.6. Her platelets were elevated at 584. Her PT and PTT look good. Her D-dimer was elevated 2.77. Her pH was normal at 7.35. Her pO2 was low at 69. Her O2 sats were 86%. Her anion gap was elevated at 17. Her creatinine was elevated at 1.1. Her glucose is elevated at 118. Her lactic acid is negative. Her LDH is elevated at 391. Her CK is low at 23. Her CRP is elevated at 19.8. Her BNP is elevated at 2097 Her CXR shows bilateral diffuse increased parenchymal densities on both sides. They were only able to get an IV in part of her hand and no other lines. I put in a right subclavian central line. It was to far in I had to pull it back. Her oxygen saturations began to drop. I put her on a nonrebreather and then BiPAP. She would not keep the BiPAP on or NC. I felt she needed to be admitted. I gave her etomidate and succinylcholine 100mg IV. I used a 7.5 ET tube. I confirmed with a CXR and the ET tube was to fare in. I pulled back the tube and it was just above the la. I checked with both [facility] and they were full. I called [facility] in [place] and talked with Dr Pal and he accepted the patient. 12/25/19 22:50 Critical care time is 45 minutes. Departure - Departure Time of Disposition: 22:50 Disposition: DC/Tfer to Acute Hospital 02 Condition: Critical Clinical Impression: COVID-19, Pneumonia due to COVID-19 virus Diabetes type 1, controlled Qualifiers: Diabetes mellitus complication status: without complication Qualified Code(s): E10.9 - Type 1 diabetes mellitus without complications - Discharge Information Referrals: Ramona Andrews NP [Primary Care Provider] - Forms: ED Department Discharge Sepsis Event Note (ED) - Evaluation Sepsis Screening Result: Possible Severe Sepsis Risk - Focused Exam Vital Signs: Vital Signs Temp Pulse Resp BP Pulse Ox Pulse Ox Pulse Ox 12/25/19 21:15 73 L 12/25/19 20:43 110 H 22 H 149/92 H 84 L 12/25/19 19:06 93 L 12/25/19 18:51 98.6 F 111 H 20 127/78 77 L - My Orders Last 24 Hours: My Active Orders 12/25/19 18:57 Cardiac Monitoring [RC] . DIRECTED Oxygen Therapy [RC] PRN Sodium Chloride 0.9% [Saline Flush] 10 ml FLUSH ASDIRECTED PRN Peripheral IV Insertion Adult [OM.PC] Stat 12/25/19 18:58 Peripheral IV Care [RC] . DIRECTED Chest 1V Frontal [CR] Stat 12/25/19 18:59 CULTURE BLOOD [BC] Stat CULTURE BLOOD [BC] Stat Blood Culture x2 Reflex Set [OM.PC] Stat 12/25/19 20:31 Central Line Assessment [RC] DAILY 12/25/19 21:30 Dextrose 5%-0.9% NaCl [Dextrose 5%-Normal Saline] 1,000 ml IV ASDIRECTED 12/25/19 22:01 CXR [Chest 1V Frontal] [CR] Stat - Assessment/Plan Last 24 Hours: My Active Orders 12/25/19 18:57 Cardiac Monitoring [RC] . DIRECTED Oxygen Therapy [RC] PRN Sodium Chloride 0.9% [Saline Flush] 10 ml FLUSH ASDIRECTED PRN Peripheral IV Insertion Adult [OM.PC] Stat 12/25/19 18:58 Peripheral IV Care [RC] . DIRECTED Chest 1V Frontal [CR] Stat 12/25/19 18:59 CULTURE BLOOD [BC] Stat CULTURE BLOOD [BC] Stat Blood Culture x2 Reflex Set [OM.PC] Stat 12/25/19 20:31 Central Line Assessment [RC] DAILY 12/25/19 21:30 Dextrose 5%-0.9% NaCl [Dextrose 5%-Normal Saline] 1,000 ml IV ASDIRECTED 12/25/19 22:01 CXR [Chest 1V Frontal] [CR] Stat
--- NOTE | 2019-12-29 09:18 | CR ---
Chest: Portable supine view of the chest was obtained. Comparison: Prior chest x-ray performed earlier on the same day (8:13 PM). Right subclavian line has been repositioned. Tip lies within the superior vena cava. Nasogastric tube is seen which is within the stomach. Endotracheal tube is noted which is at the origin of the right mainstem bronchus. Diffuse pulmonary parenchymal change is seen. Impression: 1. Satisfactory position of right subclavian line and nasogastric tube. 2. Endotracheal tube lies at the origin of the right mainstem bronchus and should be slightly withdrawn. 3. Persisting diffuse parenchymal densities within both lungs. Diagnostic code #5 Study was dictated in MDT MTDD
== END 2019-12-25 22:40 ==
LOC: JD.ED 18:42
DX: U07.1 COVID-19 (principal); J12.89 Other viral pneumonia; Z79.82 Long term (current) use of aspirin; E10.42 Type 1 diabetes mellitus with diabetic polyneuropathy; K21.9 Gastro-esophageal reflux disease without esophagitis; F32.9 Major depressive disorder, single episode, unspecified; Z79.899 Other long term (current) drug therapy; R06.02 Shortness of breath
CPT/HCPCS: 31500; 36415; 36556; 36600; 43752; 51702; 71045; 80053; 82550; 82728; 82803; 82962; 83605; 83615; 83880; 85025; 85379; 85610; 85730; 86140; 87040; 96361; 96374; 96375; 99285; J0330; J2250; J2704; J3490; J7042; 99291